=== PATIENT | male | born 1960 | race Two or more races ===

== ENCOUNTER 2018-03-17 04:24 | Emergency (ER) | payer MEDICAID ==
[~2018-03-17] VITALS: Ht 172.7 cm; Wt 96.2 kg
[2018-03-17] MEDS ORDERED: NIFEdipine 10 MG CAP PO ONE (04:45)
[2018-03-17 05:15] VITALS: BP 116/70
[2018-03-17 06:01] LABS: Urine Bacteria NONE SEEN /hpf (None Seen); Urine Blood 3+ /uL (Negative); Urine Specific Gravity 1.008 (1.001-1.035); Urine WBC 6 /hpf (0 - 3)
[2018-03-17 07:28] LABS: Basophils # (auto) 0 uL; Basophils % (auto) 0.5 % (0.0-2.0); Eosinophils # (auto) 0 uL; Eosinophils % (auto) 0.1 % (0.0-7.0); Hemoglobin 13.4 g/dL (13.5-17.5); Lymphocytes # (auto) 0.6 uL; Lymphocytes % (auto) 10.5 % (10.0-50.0); Mean Corpuscular Hemoglobin 30.8 pg (28.0-32.0); Mean Corpuscular Hgb Conc. 34.4 g/dL (32.0-36.0); Mean Corpuscular Volume 89.6 fL (80.0-100.0); Monocytes # (auto) 0.3 uL; Monocytes % (auto) 5.7 % (0.0-12.0); Neutrophils # (auto) 4.4 uL; Neutrophils % (auto) 83.2 % (37.0-80.0); Nucleated Red Blood Cells % 0.1 %; Platelet Count (auto) 149 10^3/uL (140-450); Red Blood Cells 4.35 10^6/uL (4.5-5.90); Red Cell Distribution Width 13.9 % (11.8-14.3); White Blood Cell 5.3 10^3/uL (4.4-10.8)
[2018-03-17 07:29] LABS: INR 0.93 (0.9-1.15); Prothrombin Time 10.1 sec (9.37-12.3)
[2018-03-17 07:45] LABS: Alanine Aminotransferase 24 U/L (16-61); Albumin 3.7 g/dL (3.4-5.0); Alkaline Phosphatase 97 U/L (45-117); Anion Gap 10 (5-15); Aspartate Aminotransferase 15 U/L (15-37); BUN/Creatinine Ratio 17.8; Bilirubin, Total 0.3 mg/dL (0.2-1.0); Blood Urea Nitrogen 16 mg/dL (7-18); Calcium 8.2 mg/dL (8.5-10.1); Carbon Dioxide 24 mmol/L (21-32); Chloride 103 mmol/L (98-107); GFR African American 111 mL/min; GFR Non-African American 92 mL/min; Glucose 179 mg/dL (74-106); Potassium 3.5 mmol/L (3.5-5.1); Sodium 137 mmol/L (136-145); Total Protein 7.2 g/dL (6.4-8.2)
== END 2018-03-17 06:08 | disposition home or self-care (01) ==
LOC: ER 04:28
DX: N13.9 Obstructive and reflux uropathy, unspecified (principal); E11.9 Type 2 diabetes mellitus without complications; E78.5 Hyperlipidemia, unspecified; I10 Essential (primary) hypertension
CPT/HCPCS: 36415; 51702; 74176; 80053; 81001; 84484; 85025; 85610; 85730; 93005

== ENCOUNTER 2018-03-18 03:58 | Emergency (ER) | payer MEDICAID ==
[~2018-03-18] VITALS: Ht 172.7 cm; Wt 96.2 kg
[2018-03-18] MEDS ORDERED: SODIUM CHLORIDE 0.9% 1,000 ML IV ONE (06:35)
[2018-03-18 06:37] LABS: Urine Bacteria NONE SEEN /hpf (None Seen); Urine Blood 2+ /uL (Negative); Urine Specific Gravity 1.015 (1.001-1.035); Urine WBC <1 /hpf (0 - 3)
[2018-03-18 07:26] LABS: Basophils # (auto) 0 uL; Basophils % (auto) 0.3 % (0.0-2.0); Eosinophils # (auto) 0 uL; Eosinophils % (auto) 0.2 % (0.0-7.0); Hematocrit 37.5 % (41.0-53.0); Lymphocytes # (auto) 0.7 uL; Lymphocytes % (auto) 11.3 % (10.0-50.0); Mean Corpuscular Hemoglobin 31.1 pg (28.0-32.0); Mean Corpuscular Hgb Conc. 34.7 g/dL (32.0-36.0); Mean Corpuscular Volume 89.4 fL (80.0-100.0); Monocytes # (auto) 0.5 uL; Monocytes % (auto) 7.4 % (0.0-12.0); Neutrophils # (auto) 5.3 uL; Neutrophils % (auto) 80.8 % (37.0-80.0); Platelet Count (auto) 145 10^3/uL (140-450); Red Blood Cells 4.19 10^6/uL (4.5-5.90); Red Cell Distribution Width 13.8 % (11.8-14.3); White Blood Cell 6.5 10^3/uL (4.4-10.8)
[2018-03-18 07:55] LABS: Alanine Aminotransferase 21 U/L (16-61); Albumin 3.4 g/dL (3.4-5.0); Alkaline Phosphatase 92 U/L (45-117); Anion Gap 8 (5-15); Aspartate Aminotransferase 15 U/L (15-37); BUN/Creatinine Ratio 18.1; Bilirubin, Total 0.4 mg/dL (0.2-1.0); Blood Urea Nitrogen 13 mg/dL (7-18); Calcium 8.1 mg/dL (8.5-10.1); Carbon Dioxide 26 mmol/L (21-32); Chloride 105 mmol/L (98-107); GFR African American 144 mL/min; GFR Non-African American 119 mL/min; Glucose 165 mg/dL (74-106); Potassium 3.3 mmol/L (3.5-5.1); Sodium 139 mmol/L (136-145)
[2018-03-18 08:26] VITALS: BP 119/80
[2018-03-18] MEDS ORDERED: POTASSIUM CHL 10% (20 MEQ/15ML) 15ml ORAL SOLN PO ONE (08:30)
== END 2018-03-18 10:32 | disposition home or self-care (01) ==
LOC: ER 04:05
DX: N39.0 Urinary tract infection, site not specified (principal); E87.6 Hypokalemia; E11.9 Type 2 diabetes mellitus without complications; I10 Essential (primary) hypertension
CPT/HCPCS: 36415; 51702; 71045; 74176; 80053; 81001; 84484; 85025

== ENCOUNTER 2023-02-05 22:14 | Emergency (ER) | payer MEDICAID ==
[~2023-02-05] VITALS: Ht 172.7 cm; Wt 95.0 kg
[2023-02-05 23:16] LABS: Urine Bacteria NONE SEEN /hpf (None Seen); Urine Blood 2+ /uL (Negative); Urine Specific Gravity 1.012 (1.001-1.035); Urine WBC 1 /hpf (0 - 3)
[2023-02-06 02:41] VITALS: BP 137/89
== END 2023-02-06 02:41 | disposition home or self-care (01) ==
LOC: ER 22:14
DX: R33.9 Retention of urine, unspecified (principal); N40.0 Benign prostatic hyperplasia without lower urinary tract symptoms; E11.9 Type 2 diabetes mellitus without complications; E78.5 Hyperlipidemia, unspecified; I10 Essential (primary) hypertension
CPT/HCPCS: 81001

== ENCOUNTER 2023-02-08 12:55 | Emergency (ER) | payer MEDICAID ==
[~2023-02-08] VITALS: Ht 167.6 cm; Wt 100.6 kg
[2023-02-08 14:54] VITALS: BP 154/93
[2023-02-08 15:36] LABS: Urine Bacteria NONE SEEN /hpf (None Seen); Urine Blood 3+ /uL (Negative); Urine Specific Gravity 1.017 (1.001-1.035); Urine WBC 78 /hpf (0 - 3)
== END 2023-02-08 15:19 | disposition home or self-care (01) ==
LOC: ER 12:55
DX: R33.9 Retention of urine, unspecified (principal); E11.9 Type 2 diabetes mellitus without complications; E78.5 Hyperlipidemia, unspecified; I10 Essential (primary) hypertension; Z46.6 Encounter for fitting and adjustment of urinary device
CPT/HCPCS: 81001

== ENCOUNTER 2024-10-15 09:31 | Emergency (ER) | payer MEDICAID ==
[~2024-10-15] VITALS: Ht 165.1 cm; Wt 98.0 kg
[~2024-10-15 09:31] MED LIST: ACET-1304 PO; ARTISOL13 EACHEYE; ASCO500C49 PO; ASPI-498 PO; ATOR40TA52 PO; BENA5TAB9 PO; GLIP10TA9 PO; IBUP1TAB5 PO; MENTCRE10 EX; METF-929 PO; TERA10CA36 PO
[2024-10-15] MEDS ORDERED: METH4PAK PO (10:13)
[2024-10-15] MEDS ORDERED: HYDR-4902 PO (10:13)
--- NOTE | 2024-10-15 10:13 | ED.PDOC ---
History of Present Illness HPI Comments 64-year-old male who comes in with chief complaint of right-sided back pain. The patient states that he has been diagnosed with sciatica in the past. He was in the ER in [place] approximately two weeks ago where he received an injection but it does not seem to have helped. The patient then went to a clinic and received some other injections but it does not seem to be working. At this time he states that the pain is a 7/10. He was rolled in a wheelchair by his family member. The patient denies any nausea, vomiting or diarrhea. He has never had an MRI in the past. Chief Complaint: Back Pain Time Seen by MD: 10:06 Primary Care Provider: unknown Reviewed Notes: Nurses Notes, Medications, Allergies Allergies: Coded Allergies: NO KNOWN ALLERGIES (Unverified , 03/15/14) Home Meds Active Scripts Hydrocodone-Acetaminophen (Hydrocodone Bitartrate/AC 5-325 mg) 1 Tab Tab, 1 TAB PO Q8HP PRN for 5 Days, #15 TAB Prov:HOLLI GUILLEN MD 10/15/24 Methylprednisolone (Medrol Dosepak) 4 Mg [place], 4 MG PO UD, #21 TAB UAD Prov:HOLLI GUILLEN MD 10/15/24 Reported Medications Ascorbic Acid (VITAMIN C) Unknown Strength Cap, PO PRN 05/03/21 Terazosin Hcl (Terazosin Hcl) 10 Mg Cap, 10 MG PO DAILY 05/03/21 Menthol-Methyl Salicylate (Sonal (Muscle Rub) Cre, 1 APPLIC EX Q6HP PRN for MILD PAIN (1-3 PAIN SCALE) MUSCLE RUB 15-10% CREAM 05/03/21 Metformin HCl (Metformin Hydrochloride) 1,000 Mg Tab, 1000 MG PO BIDWM 05/03/21 Ibuprofen Micronized (Ibuprofen) 600 Mg Tab, 600 MG PO Q8HP PRN for MODERATE PAIN (4-6 PAIN SCALE) 05/03/21 Glipizide (Glipizide) 10 Mg Tab, 10 MG PO BIDAC 05/03/21 Benazepril Hcl (Benazepril Hcl) 5 Mg Tab, 5 MG PO DAILY 05/03/21 Atorvastatin Calcium (ATORVASTATIN CALCIUM) 40 Mg Tab, 1 TAB PO DAILY 05/03/21 Aspirin (ASPIRIN 81) 81 Mg Tab, 81 MG PO DAILY 05/03/21 Artificial Tear Solution (ARTIFICIAL TEARS) Tears Amy, 1 DROP EACHEYE QIDPRN for DRY EYES 05/03/21 Acetaminophen (Tylenol Extra Strength) 500 Mg Tab, 500 MG PO Q6HP PRN for PAIN 05/03/21 Information Source: Patient, Relative Mode of Arrival: Wheelchair Severity: Moderate Timing: Weeks Duration: Since onset Prehospital treatment: None Location: Right-sided back pain with radiation to the right leg Past Medical History PAST MEDICAL HISTORY: DM, High Lipids, HTN Past Medical History (Other): BPH Surgical History (Other): Left knee surgery Family History Family History: Family hx of Cancer Social History Smoker: Non-Smoker Alcohol: Occasionally Drugs: Denies Drug Use Lives In: Home Constitutional: denies: chills, diaphoresis, fatigue, fever, malaise, sweats, weakness, others EENTM: denies: blurred vision, double vision, ear bleeding, ear discharge, ear drainage, ear pain, ear ringing, eye pain, eye redness, hearing loss, mouth pain, mouth swelling, nasal discharge, nose bleeding, nose congestion, nose pain, photophobia, tearing, throat pain, throat swelling, voice changes, others Respiratory: denies: cough, hemoptysis, orthopnea, SOB at rest, shortness of breath, SOB with excertion, stridor, wheezing, others Cardiovascular: denies: chest pain, dizzy spells, diaphoresis, Dyspnea on exertion, edema, irregular heart beat, left arm pain, lightheadedness, palpitations, PND, syncope, others Gastrointestinal: denies: abdomen distended, abdominal pain, blood streaked bowels, constipated, diarrhea, dysphagia, difficulty swallowing, hematemesis, melena, nausea, poor appetite, poor fluid intake, rectal bleeding, rectal pain, vomiting, others Genitourinary: denies: burning, dysuria, flank pain, frequency, hematuria, incontinence, penile discharge, penile sore, pain, testicle pain, testicle swelling, urgency, others Neurological: denies: dizziness, fainting, headache, left sided numbness, left sided weakness, numbness, paresthesia, pre-existing deficit, right sided numbness, right sided weakness, seizure, speech problems, tingling, tremors, weakness, others Musculoskeletal: reports: back pain; denies: gout, joint pain, joint swelling, muscle pain, muscle stiffness, neck pain, others Integumetry: denies: bruises, change in color, change in hair/nails, dryness, laceration, lesions, lumps, rash, wounds, others Allergic/Immunocompromised: denies: Difficulty Healing, Frequent Infections, Hives, Itching, others Hematologic/Lymphatic: denies: anemia, blood clots, easy bleeding, easy bruising, swollen glands, others Endocrine: denies: excessive hunger, excessive sweating, excessive thirst, excessive urination, flushing, intolerance to cold, intolerance to heat, unexplained weight gain, unexplained weight loss, others Psychiatric: denies: anxiety, bipolar disorder, depression, hopeless, panic disorder, schizophrenia, sleepless, suicidal, others Physical Exam General Appearance: Mild Distress HEENT: Normal ENT Inspection, Pharynx Normal, TMs Normal Neck: Full Range of Motion, Non-Tender, Normal, Normal Inspection Respiratory: Chest Non-Tender, Lungs Clear, No Accessory Muscle Use, No Re spiratory Distress, Normal Breath Sounds Cardiovascular: No Edema, No JVD, No Murmur, No Gallop, Normal Peripheral Pulses, Regular Rate/Rhythm Breast Exam: Deferred Gastrointestinal: No Organomegaly, Non Tender, No Pulsatile Mass, Normal Bowel Sounds, Soft Genitalia: Deferred Pelvic: Deferred Rectal: Deferred Extremities: No calf tenderness, Normal capillary refill, Normal inspection, Normal range of motion, Non-tender, No pedal edema Musculoskeletal : Location: Right Extremity Location: Back Apperance: Tenderness: Mild Neurologic: Alert, eye care professional II-XII nml as Tested, No Motor Deficits, Normal Affect, Normal Mood, No Sensory Deficits Cerebellar Function: Normal Reflexes: Normal Skin: Dry, Normal Color, Warm Lymphatic: No Adenopathy Was a procedure done? Was a procedure done?: No Differential Dx Considerations may include: Sciatica, generalized weakness X-Ray, Labs, Meds, VS Vital Signs Date Time Temp Pulse Resp B/P (MAP) Pulse Ox O2 Delivery O2 Flow Rate FiO2 10/15/24 10:00 98.2 103 18 136/85 (102) 96 The patient was given morphine 4 mg IM The patient was also given Zofran 4 mg IM The patient was told to follow up with his primary care doctor for an MRI The patient will return to the emergency department's condition worsens. The patient was being given a prescription of a Medrol Dosepak as well as [place] Time of 1ST Reevaluation: 10:11 Reevaluation 1ST: Unchanged Patient Education/Counseling: Diagnosis, Treatment, Prognosis, Need For Follow Up Family Education/Counseling: No Family Present Departure 1 Departure Time of Disposition: 10:12 Impression: Primary Impression: Lumbar radiculopathy Disposition: HOME / SELF CARE / HOMELESS Condition: Fair e-Prescriptions Hydrocodone-Acetaminophen (Hydrocodone Bitartrate/AC 5-325 mg) 1 Tab Tab 1 TAB PO Q8HP PRN for 5 Days, #15 TAB Prov: HOLLI GUILLEN MD 10/15/24 Methylprednisolone (Medrol Dosepak) 4 Mg [place] 4 MG PO UD, #21 TAB UAD Prov: HOLLI GUILLEN MD 10/15/24 Discharged With: Self, Relative Critical Care Note Critical Care Time?: No Stability Stability form required: No Heart Score Heart Score: Heart Score Response (Comments) Value History N/A 0 EKG N/A 0 Age N/A 0 Risk Factors N/A 0 Troponin N/A 0 Total 0 HOLLI GUILLEN MD Oct 15, 2024 10:12
[2024-10-15] MEDS: ONDANSETRON HCL 4 MG/2 ML VIAL IM ONE (10:15)
[2024-10-15] MEDS: MORPHINE SULFATE INJ 2 MG/ml SYRG IM ONE (10:18)
[2024-10-15 10:19] VITALS: TEMP 98.7; O2SAT 96
[2024-10-15 10:33] VITALS: BP 109/87; PULSE 104; RESP 18
== END 2024-10-15 10:36 | disposition home or self-care (01) ==
LOC: ER 09:31
DX: M54.16 Radiculopathy, lumbar region (principal); I10 Essential (primary) hypertension; E11.9 Type 2 diabetes mellitus without complications; Z79.899 Other long term (current) drug therapy
CPT/HCPCS: 96372; 99284; J2270; J2405

== ENCOUNTER 2025-10-14 02:43 | Emergency (ER) | payer MEDICAID ==
[~2025-10-14] VITALS: Ht 175.3 cm; Wt 89.3 kg
[~2025-10-14 02:43] MED LIST changes: +HYDR-4902 PO; +METH4PAK PO
[2025-10-14 03:05] VITALS: BP 137/92; PULSE 71; RESP 16; TEMP 98.4; O2SAT 97
[2025-10-14] MEDS ORDERED: IBUP1TAB4 PO (03:21)
[2025-10-14] MEDS ORDERED: METH4PAK PO (03:21)
--- NOTE | 2025-10-14 03:21 | ED.PDOC ---
Musculoskeletal HPI Comments 65-YEAR-OLD MALE PRESENTS TO ER WITH COMPLAINTS OF RIGHT SHOULDER PAIN X5 DAYS. PATIENT WITH PAST MEDICAL HISTORY SIGNIFICANT FOR CHRONIC RIGHT SHOULDER PAIN REPORTS HE STARTED EXPERIENCING WORSENING RIGHT SHOULDER PAIN WITH ASSOCIATED BRUISING/PAIN LOCALIZED TO RIGHT BICEP FIVE DAYS AGO WHILE HE WAS RAKING IN HIS YARD. HE RATES HIS CURRENT PAIN A 9/10 AND DENIES USE OF MEDICATIONS FOR CURRENT SYMPTOMS. DENIES NUMBNESS/TINGLING, SHORTNESS OF BREATH, CHEST PAIN OR ANY FURTHER SYMPTOMS/COMPLAINTS Chief Complaint: Upper Extremity Time Seen by MD: 02:47 Primary Care Provider: SATNAM Reviewed Notes: Nurses Notes, Medications, Allergies Allergies: Coded Allergies: NO KNOWN ALLERGIES (Unverified , 03/15/14) Home Meds Active Scripts Methylprednisolone (Medrol Dosepak) 4 Mg [place], 4 MG PO UD, #21 TAB 0 Refills UAD Prov:TRAY JAUREGUI 10/14/25 Ibuprofen Micronized (Ibuprofen) 400 Mg Tab, 400 MG PO Q6HPRN, #30 TAB 0 Refills Prov:TRAY JAUREGUI 10/14/25 Hydrocodone-Acetaminophen (Hydrocodone Bitartrate/AC 5-325 mg) 1 Tab Tab, 1 TAB PO Q8HP PRN for 5 Days, #15 TAB Prov:HOLLI GUILLEN MD 10/15/24 Methylprednisolone (Medrol Dosepak) 4 Mg [place], 4 MG PO UD, #21 TAB UAD Prov:HOLLI GUILLEN MD 10/15/24 Reported Medications Ascorbic Acid (VITAMIN C) Unknown Strength Cap, PO PRN 05/03/21 Terazosin Hcl (Terazosin Hcl) 10 Mg Cap, 10 MG PO DAILY 05/03/21 Menthol-Methyl Salicylate (Sonal (Muscle Rub) Cre, 1 APPLIC EX Q6HP PRN for MILD PAIN (1-3 PAIN SCALE) MUSCLE RUB 15-10% CREAM 05/03/21 Metformin HCl (Metformin Hydrochloride) 1,000 Mg Tab, 1000 MG PO BIDWM 05/03/21 Ibuprofen Micronized (Ibuprofen) 600 Mg Tab, 600 MG PO Q8HP PRN for MODERATE PAIN (4-6 PAIN SCALE) 05/03/21 Glipizide (Glipizide) 10 Mg Tab, 10 MG PO BIDAC 05/03/21 Benazepril Hcl (Benazepril Hcl) 5 Mg Tab, 5 MG PO DAILY 05/03/21 Atorvastatin Calcium (ATORVASTATIN CALCIUM) 40 Mg Tab, 1 TAB PO DAILY 05/03/21 Aspirin (ASPIRIN 81) 81 Mg Tab, 81 MG PO DAILY 05/03/21 Artificial Tear Solution (ARTIFICIAL TEARS) Tears Amy, 1 DROP EACHEYE QIDPRN for DRY EYES 05/03/21 Acetaminophen (Tylenol Extra Strength) 500 Mg Tab, 500 MG PO Q6HP PRN for PAIN 05/03/21 Information Source: Patient Mode of Arrival: Ambulatory Past Medical History PAST MEDICAL HISTORY: DM, High Lipids, HTN Past Medical History (Other): Chronic right shoulder pain Family History Family History: Family hx of Cancer Social History Smoker: Non-Smoker Alcohol: Occasionally Drugs: Denies Drug Use Lives In: Home Constitutional: denies: chills, diaphoresis, fatigue, fever, malaise, sweats, weakness, others EENTM: denies: blurred vision, double vision, ear bleeding, ear discharge, ear drainage, ear pain, ear ringing, eye pain, eye redness, hearing loss, mouth pain, mouth swelling, nasal discharge, nose bleeding, nose congestion, nose pain, photophobia, tearing, throat pain, throat swelling, voice changes, others Respiratory: denies: cough, hemoptysis, orthopnea, SOB at rest, shortness of breath, SOB with excertion, stridor, wheezing, others Cardiovascular: denies: chest pain, dizzy spells, diaphoresis, Dyspnea on exertion, edema, irregular heart beat, left arm pain, lightheadedness, palpi tations, PND, syncope, others Gastrointestinal: denies: abdomen distended, abdominal pain, blood streaked bowels, constipated, diarrhea, dysphagia, difficulty swallowing, hematemesis, melena, nausea, poor appetite, poor fluid intake, rectal bleeding, rectal pain, vomiting, others Genitourinary: denies: burning, dysuria, flank pain, frequency, hematuria, incontinence, penile discharge, penile sore, pain, testicle pain, testicle swelling, urgency, others Neurological: denies: dizziness, fainting, headache, left sided numbness, left sided weakness, numbness, paresthesia, pre-existing deficit, right sided numbness, right sided weakness, seizure, speech problems, tingling, tremors, weakness, others Musculoskeletal: reports: others (As stated in HPI) Integumetry: reports: others (As stated in HPI) Allergic/Immunocompromised: denies: Difficulty Healing, Frequent Infections, Hives, Itching, others Hematologic/Lymphatic: denies: anemia, blood clots, easy bleeding, easy bruising, swollen glands, others Endocrine: denies: excessive hunger, excessive sweating, excessive thirst, excessive urination, flushing, intolerance to cold, intolerance to heat, unexplained weight gain, unexplained weight loss, others Psychiatric: denies: anxiety, bipolar disorder, depression, hopeless, panic disorder, schizophrenia, sleepless, suicidal, others Physical Exam General Appearance: No Apparent Distress HEENT: PERRL/EOMI Neck: Full Range of Motion, Non-Tender, Normal Respiratory: Chest Non-Tender, Lungs Clear, No Accessory Muscle Use, No Respiratory Distress, Normal Breath Sounds Cardiovascular: No Murmur, No Gallop, Regular Rate/Rhythm Breast Exam: Deferred Gastrointestinal: NOT DONE Genitalia: Deferred Pelvic: Deferred Rectal: Deferred Extremities: Normal capillary refill Musculoskeletal : Extremity Location: Shoulder (TTP/moderate ecchymosis noted over right bicipital groove. Positive [place] deformity on right. Weakness noted with forearm supination on right. TTP also noted to right GH joint. No further skin changes noted) Neurologic: Alert, Normal Affect, Normal Mood, No Sensory Deficits Cerebellar Function: Normal Reflexes: Normal Skin: Dry, Warm Peripheral Pulses: 2+ carotid (R), 2+ carotid (L), 2+ Radial (R), 2+ Radial (L), 2+ Brachial (R), 2+ Brachial (L) Lymphatic: No Adenopathy Was a procedure done? Was a procedure done?: No Sedation Sedation?: No Differential Diagnosis EXT Differential Diagnosis: Fracture, Dislocation, Neurovascular injury, Other (Distal biceps rupture) X-Ray, Labs, Meds, VS Vital Signs Date Time Temp Pulse Resp B/P (MAP) Pulse Ox O2 Delivery O2 Flow Rate FiO2 10/14/25 03:05 98.4 71 16 137/92 (107) 97 98.4 10/14/25 03:05 97 Room Air* 0 21 10/14/25 02:47 98.4 71 16 137/92 97 98.4 PATIENT: RAMON BARRIOSOCHERT: [id number]: [id number] : 1960 LOC: ER ROOM / BED: / AGE / SEX: 65 / M ADM STATUS: REG ER SERVICE 6 ORDERING PHYSICIAN: TRAY JAUREGUI PROCEDURE(s): RSHD2 - R SHOULDER 2+ VIEW XRAY REASON: right shoulder pain ORDER NUMBER(s): [id number], ACCESSION NUMBER(s): [id number] CLINICAL INDICATION: right shoulder pain TECHNIQUE: 3 views XY R SHOULDER 2+ VIEW XRAY COMPARISON: None FINDINGS: No acute fracture or dislocation. Hypertrophic osseous density at the glenoid articular surface without significant joint space loss. Mild acromioclavicular osteoarthrosis. Unremarkable soft tissues and imaged chest. IMPRESSION: 1. No acute osseous abnormality of the right shoulder. 2. Irregular glenoid osseous hypertrophy most likely represents osteophyte formation, and may suggest chronic instability. ATED BY: BRENNA BANUELOS MD DICTATED DATE/TIME: 10/14/25316 SIGNED BY: BRENNA BANUELOS MD SIGNED DATE/TIME: 10/14/25316 CC: Right shoulder x-ray reviewed Patient neurovascularly intact and no evidence of distal biceps rupture Right arm sling applied Solu-Medrol 125 mg IM ordered Ibuprofen 800 mg PO ordered Advised on elevation and alternate ice on/off as needed for pain Discussed with patient that he will benefit from MRI for further evaluation of symptoms Advised to follow up with PCP and orthopedics in 1-2 days Patient verbalized understanding and agreeable with current plan of care Advised to return to ER immediately if symptoms worsen Images Reviewed?: Images reviewed and evaluated by me Time of 1ST Reevaluation: 02:54 Reevaluation 1ST: N/A Patient Education/Counseling: Diagnosis, Treatment, Prognosis, Need For Follow Up Family Education/Counseling: No Family Present Departure 1 Departure Time of Disposition: 03:19 Impression: Primary Impression: Biceps rupture, proximal Qualified Codes: S46.211A - Strain of muscle, fascia and tendon of other parts of biceps, right arm, initial encounter Additional Impression: Chronic right shoulder pain Disposition: 01 HOME / SELF CARE / HOMELESS Condition: Stable e-Prescriptions Methylprednisolone (Medrol Dosepak) 4 Mg [place] 4 MG PO UD, #21 TAB 0 Refills UAD Prov: TRAY JAUREGUI 10/14/25 Ibuprofen Micronized (Ibuprofen) 400 Mg Tab 400 MG PO Q6HPRN, #30 TAB 0 Refills Prov: TRAY JAUREGUI 10/14/25 Discharged With: Friend Critical Care Note Critical Care Time?: No Stability Stability form required: No Heart Score Heart Score: Heart Score Response (Comments) Value History N/A 0 EKG N/A 0 Age N/A 0 Risk Factors N/A 0 Troponin N/A 0 Total 0 TRAY JAUREGUI Oct 14, 2025 03:21
[2025-10-14] MEDS: IBUPROFEN 800 MG TAB PO ONE (03:30)
[2025-10-14] MEDS: methylPREDNISolone SOD SUCC 125 MG/2 ML VL IM ONE (03:36)
== END 2025-10-14 03:44 | disposition home or self-care (01) ==
LOC: ER 02:43
DX: S46.211A Strain of muscle, fascia and tendon of other parts of biceps, right arm, initial encounter (principal); I10 Essential (primary) hypertension; E11.9 Type 2 diabetes mellitus without complications; Z79.899 Other long term (current) drug therapy; X58.XXXA Exposure to other specified factors, initial encounter; Y93.89 Activity, other specified; Y92.89 Other specified places as the place of occurrence of the external cause; Y99.8 Other external cause status
CPT/HCPCS: 73030; 96372; 99283; J2919